=== PATIENT | female | born 1985 | race Caucasian/White ===

== ENCOUNTER 2018-08-12 08:33 | Emergency (ER) | payer OTHER ==
[~2018-08-12] VITALS: Ht 165.1 cm; Wt 108.9 kg
[2018-08-12 08:38] VITALS: Ht 165.1 cm; Wt 108.9 kg
[2018-08-12 09:24] VITALS: BP 117/79
== END 2018-08-12 09:24 | disposition other institution (70) ==
LOC: ED 08:33
DX: Z02.89 Encounter for other administrative examinations (principal)

== ENCOUNTER 2019-03-05 14:47 | Emergency (ER) | payer OTHER ==
[~2019-03-05] VITALS: Ht 167.6 cm; Wt 109.8 kg
[2019-03-05 16:37] VITALS: BP 147/75
== END 2019-03-05 16:37 | disposition home or self-care (01) ==
LOC: ED 14:47
DX: S83.91XA Sprain of unspecified site of right knee, initial encounter (principal); Z91.040 Latex allergy status; Z98.890 Other specified postprocedural states; W11.XXXA Fall on and from ladder, initial encounter; Y93.89 Activity, other specified; Y92.89 Other specified places as the place of occurrence of the external cause; Y99.8 Other external cause status
CPT/HCPCS: Q0092

== ENCOUNTER 2019-05-29 00:34 | Emergency (ER) | payer OTHER ==
[~2019-05-29] VITALS: Ht 167.6 cm; Wt 110.3 kg
[2019-05-29 00:48] VITALS: Ht 167.6 cm; Wt 110.3 kg
[2019-05-29 02:21] VITALS: BP 114/73
== END 2019-05-29 02:21 | disposition home or self-care (01) ==
LOC: ED 00:34
DX: L03.115 Cellulitis of right lower limb (principal); R06.02 Shortness of breath; R00.2 Palpitations; M79.10 Myalgia, unspecified site; Z91.040 Latex allergy status
CPT/HCPCS: J0696; J7512